=== PATIENT | male | born 1965 | race Caucasian/White ===

== ENCOUNTER → 2016-12-26 | Outpatient (CLI) | payer BC ==
[~2016-12-26] MED LIST: ASPI-435 PO; CLOT10TR2 MT; HYDR4TAB78 PO; LORA-741 PO; LOVAZA PO; MAGIC1 PO; MULT-506 PO; OMEG10007 PO; OMEP20CA9 PO; ONDA8TAB6 PO; PILO5TAB10 PO; PROC1TAB5 PO; SIMV20TA2 PO
--- NOTE | 2016-12-26 15:11 | DIAGNOSTIC IMAGING REPORT ---
ULTRASOUND OF THE CAROTID ARTERIES CLINICAL HISTORY: Cancer of the tongue. COMPARISON STUDY: CT scan of the neck dated 10/03/2016. TECHNIQUE: Real-time, grayscale, and color Doppler sonography of the carotid arteries is performed. Images are reviewed in the transverse and longitudinal planes. FINDINGS: Blood pressure in the right arm measures 155/91 and blood pressure in the left arm measures 147/94. The carotid arteries are patent bilaterally and demonstrate antegrade flow. There is minimal atherosclerotic plaque identified. Normal doppler arterial waveforms are seen throughout. Velocity measurements are listed below. Common carotid peak systolic velocity (cm/sec): RIGHT: 100 LEFT: 104 ICA proximal peak systolic velocity (cm/sec): RIGHT: 96 LEFT: 73 ICA mid peak systolic velocity (cm/sec): RIGHT: 77 LEFT: 82 ICA distal peak systolic velocity (cm/sec): RIGHT: 89 LEFT: 74 ICA/CC peak systolic ratio: RIGHT: 1.0 LEFT: 0.8 Antegrade flow was shown in the vertebral arteries. The external carotid arteries are patent. IMPRESSION: 1. There is no sonographic evidence of hemodynamically significant stenosis in the right or left carotid arterial system. 2. Antegrade flow is shown in the vertebral arteries. Electronically signed by: Ilya Dukes M.D. 12/26/2016 3:09 PM Dictated Date/Time: 12/26/2016 3:08 PM
== END | disposition home or self-care (01) ==
LOC: C.ULTR 14:03
PROVIDERS: ATTEND Radiology Radiation Oncology
DX: C02.1 Malignant neoplasm of border of tongue (principal)

== ENCOUNTER → 2017-01-23 | Day surgery (SDC) | payer BC ==
[~2017-01-23] VITALS: Ht 175.3 cm; Wt 96.4 kg
[~2017-01-23] MED LIST changes: -ASPI-435 PO; +CEFAZOLIN IV 2,000 MG/60 ML D5W IV SCH; +FENTANYL CITRATE INJ 50 MCG/1 ML 2 ML VIAL ONE; +LIDOCAINE HCL 2% 2 ML VIAL (20MG/ML) ONE; -LOVAZA PO; +MIDAZOLAM HCL 1 MG/ML 2ML VIAL ONE; +PROPOFOL IV EMULSION 10 MG/ML 20 ML VIAL IV ONE
[2017-01-23 11:17] VITALS: Ht 175.3 cm; Wt 96.4 kg
[2017-01-23 11:43] VITALS: TEMP 37
--- NOTE | 2017-01-23 12:15 | Endo History and Physical ---
History & Physical Date of Service: Jan 23, 2017. Chief Complaint: Inadequate intake; R/T radiaion, chemo Referring Physician: Harshal Conrad History of Present Illness History of tongue cancer for PEG tube placement today Past Medical History Reflux, Cancer, High Cholesterol Past Surgical History Hx Cardiac Surgery: No Hx Internal Defibrillator: No Hx Pacemaker: No Hx Abdominal Surgery: No Hx Post-Op Nausea and Vomiting: No Hx Cancer Surgery: No Hx Thoracic Surgery: No Hx Orthopedic: No Hx Urinary Tract Surgery: No Family History None Social History Smoking Status: Never Smoker Hx Substance Use: No Hx Alcohol Use: No Allergies Coded Allergies: Morphine and Related (Verified Allergy, Severe, RASH, 12/06/16) Current Medications Reported Home Medications Medications Dose Route/Sig Max Daily Dose Days Date Category Dose Instructions Zofran (Ondansetron HCl) 8 Mg Tab 8 Mg PO PRN 01/13/17 Reported Compazine (Prochlorperazine Maleate) 10 Mg Tab 10 Mg PO Q4H 01/13/17 Reported NAUSEA/VOMITING Dilaudid (Hydromorphone Hcl) 4 Mg Tab 1 Tab PO QID PRN 30 01/13/17 Reported Prilosec (Omeprazole) 20 Mg Cap 20 Mg PO DAILY PRN 05/12/15 Reported Zocor (Simvastatin) 20 Mg Tab 20 Mg PO DAILY 05/12/15 Reported Vital Signs Weight (Kilograms): 96.36 Height (Feet): 5 Height (Inches): 9 Date Time Temp Pulse Resp B/P Pulse Ox O2 Delivery O2 Flow Rate FiO2 01/23/17 11:43 37 83 20 135/82 96 Room Air Physical Exam General Appearance: no apparent distress Respiratory/Chest: Auscultation: breath sounds normal Cardiovascular: Heart Auscultation: RRR Abdomen: Inspection & Palpation: soft Assessment and Plan PEG tube placement today, history of tongue cance. Risks discussed to include bleeding, infection, perforation, pain and infection.
--- NOTE | 2017-01-23 13:18 | Discharge Instructions ---
Endoscopy Patient Instructions Date / Procedure Performed Jan 23, 2017. Percutaneous Endoscopic Gastrotomy (P.E.G) Tube Replacement / Removal Allergy Information Coded Allergies: Morphine and Related (Verified Allergy, Severe, RASH, 01/23/17) Home Medication List Scheduled Prochlorperazine Maleate (Compazine), 10 MG PO Q4H Simvastatin (Zocor), 20 MG PO DAILY Scheduled PRN Hydromorphone Hcl (Dilaudid), 1 TAB PO QID PRN for Pain Omeprazole (Prilosec), 20 MG PO DAILY PRN for Indigestion Ondansetron Hcl (Zofran), 8 MG PO for Nausea Discharge Date / Findings Jan 23, 2017. PEG tube placement today Medication Instructions Reported Home Medications Medications Dose Route/Sig Max Daily Dose Days Date Category Dose Instructions Zofran (Ondansetron HCl) 8 Mg Tab 8 Mg PO PRN 01/13/17 Reported Compazine (Prochlorperazine Maleate) 10 Mg Tab 10 Mg PO Q4H 01/13/17 Reported NAUSEA/VOMITING Dilaudid (Hydromorphone Hcl) 4 Mg Tab 1 Tab PO QID PRN 30 01/13/17 Reported Prilosec (Omeprazole) 20 Mg Cap 20 Mg PO DAILY PRN 05/12/15 Reported Zocor (Simvastatin) 20 Mg Tab 20 Mg PO DAILY 05/12/15 Reported Provider Instructions Activity Recommendations * Resume regular activity . Diet Recommendations * Resume previous diet. * Advance diet as tolerated. * Before each feeding, aspirate the tube for residual gastric contents. Hold feedings for residual of 50 ml or more. * Elevate the head of the bed during and after feedings for 30-60 minutes . Medication Instructions * Resume usual medications. * Always flush the tube with warm water after administration of medication. Follow-Up Information Follow-up with Gastroenterology in 2 weeks for evaluation of the PEG tube Change dressing once per day Clean site with soap and water daily and dry thoroughly May use PEG today for meds and water May use PEG tomorrow for feedings Anesthesia Information What You Should Know You have had a procedure that required some medicine to reduce anxiety and discomfort. This treatment is called moderate sedation. After receiving the treatment, you may be sleepy, but you will be able to breathe on your own. The effects of the treatment may last for several hours. Follow these instructions along with Activity/Diet recommendations noted above: * Do NOT do anything where dizziness or clumsiness would be dangerous. * Rest quietly at home today, then you can be up and about tomorrow. * Have a responsible person stay with you the rest of today. * You may have had an I.V. today. If so, you may take the dressing off later today. Symptoms Additional Instructions If you experience any of the following symptoms after your procedure seek medical attention at your closest Emergency Room and/or call your primary care physician immediately: * Severe abdominal pain or bloating * Fever greater than 101.1 degrees within 24 hours after the procedure * Uncontrolled nausea and vomiting Avoid all tobacco products. If you need help to stop smoking, call [place]'s FREE QUIT LINE at . Your discharge instructions were prepared by provider Kasie Rios. Patient Instructions Signature Page [facility] [place] Patient (or Guardian) Signature/Date: I have read and understand the instructions given to me by my caregivers. Caregiver/RN/Doctor Signature/Date: The above-named patient and/or guardian has received patient instructions on this date. + Original Patient Signature Page (only) stays with chart. Please make copy for patient.
--- NOTE | 2017-01-23 13:54 | Anesthesiology Progress Note ---
Anesthesia Post Op Note Date & Time Jan 23, 2017 at 13:53 Vital Signs Pain Intensity: 5 Vital Signs Past 12 Hours Date Time Temp Pulse Resp B/P Pulse Ox O2 Delivery O2 Flow Rate FiO2 01/23/17 13:35 68 18 157/87 96 Room Air 01/23/17 13:25 65 18 153/87 98 Room Air Mask 01/23/17 13:16 84 18 148/87 100 Mask 10 01/23/17 11:43 37 83 20 135/82 96 Room Air Notes Mental Status: alert / awake / arousable Nausea / Vomiting: adequately controlled Pain: adequately controlled Airway Patency, RR, SpO2: stable & adequate BP & HR: stable & adequate Hydration State: stable & adequate Anesthetic Complications: no major complications apparent
[2017-01-23 14:12] VITALS: BP 152/83; PULSE 67; O2SAT 96
--- NOTE | 2017-01-24 00:45 | GI REPORT ---
Procedure Date: 01/23/2017 12:17 PM Procedure: Upper GI endoscopy Indications: Place PEG because patient is unable to eat Medicines: Monitored Anesthesia Care, Ancef 1000 mg IV Complications: No immediate complications. Estimated blood loss: Minimal. Estimated Blood Loss: Estimated blood loss was minimal. Procedure: Pre-Anesthesia Assessment: - Prior to the procedure, a History and Physical was performed, and patient medications, allergies and sensitivities were reviewed. The patient's tolerance of previous anesthesia was reviewed. - The risks and benefits of the procedure and the sedation options and risks were discussed with the patient. All questions were answered and informed consent was obtained. - Patient identification and proposed procedure were verified prior to the procedure by the physician, the nurse and the photographer aerial. The procedure was verified in the procedure room. - Pre-procedure physical examination revealed no contraindications to sedation. - ASA Grade Assessment: III - A patient with severe systemic disease. - After reviewing the risks and benefits, the patient was deemed in satisfactory condition to undergo the procedure. - The anesthesia plan was to use monitored anesthesia care (MAC). - Immediately prior to administration of medications, the patient was re-assessed for adequacy to receive sedatives. - The heart rate, respiratory rate, oxygen saturations, blood pressure, adequacy of pulmonary ventilation, and response to care were monitored throughout the procedure. - The physical status of the patient was re-assessed after the procedure. After obtaining informed consent, the endoscope was passed under direct vision. Throughout the procedure, the patient's blood pressure, pulse, and oxygen saturations were monitored continuously. The scope was introduced through the mouth, and advanced to the third part of duodenum. The upper GI endoscopy was accomplished without difficulty. The patient tolerated the procedure well. Findings: The examined esophagus was normal. The entire examined stomach was normal. The patient was placed in the supine position for PEG placement. The stomach was insufflated to appose gastric and abdominal durán. A site was located in the body of the stomach with excellent transillumination and manual external pressure for placement. The abdominal wall was marked and prepped in a sterile manner. The area was anesthetized with 5 mL of 1% lidocaine. The trocar needle was introduced through the abdominal wall and into the stomach under direct endoscopic view. A snare was introduced through the endoscope and opened in the gastric lumen. The guide wire was passed through the trocar and into the open snare. The snare was closed around the guide wire. The endoscope and snare were removed, pulling the wire out through the mouth. A skin incision was made at the site of needle insertion. The externally removable 20 Fr Enoch-Cook gastrostomy tube was lubricated. The G-tube was tied to the guide wire and pulled through the mouth and into the stomach. The trocar needle was removed, and the gastrostomy tube was pulled out from the stomach through the skin. The external bumper was attached to the gastrostomy tube, and the tube was cut to remove the guide wire. The final position of the gastrostomy tube was confirmed by relook endoscopy, and skin marking noted to be 3.5 cm at the external bumper. The final tension and compression of the abdominal wall by the PEG tube and external bumper were checked and revealed that the PEG balloon was moderately tight and mildly compressing the stomach. The feeding tube was capped, and the tube site cleaned and dressed. Estimated blood loss was minimal. The examined duodenum was normal. Impression: - Normal esophagus. - Normal stomach. - Normal examined duodenum. - An externally removable PEG placement was successfully completed. - No specimens collected. Recommendation: - Clear liquid diet today. - Please follow the post-PEG recommendations including: change dressing once per day, clean site with soap and water daily and dry thoroughly, may use PEG today for meds and water and may use PEG tomorrow for feedings. Kasie Rios D.O. Kasie Rios, 01/23/2017 1:16:11 PM This report has been signed electronically. Note Initiated On: 01/23/2017 12:17 PM I attest to the content of the Intraoperative Record and orders documented therein, exceptions below
== END | disposition home or self-care (01) ==
LOC: C.GI 10:31
PROVIDERS: ATTEND Internal Medicine Gastroenterology
DX: C02.1 Malignant neoplasm of border of tongue (principal); Z92.21 Personal history of antineoplastic chemotherapy; Z92.3 Personal history of irradiation; E78.00 Pure hypercholesterolemia, unspecified; K21.9 Gastro-esophageal reflux disease without esophagitis

== ENCOUNTER 2017-02-09 12:27 | Inpatient (IN) | payer BC ==
[~2017-02-09] VITALS: Ht 177.8 cm; Wt 92.3 kg
[~2017-02-09 12:27] MED LIST changes: -CEFAZOLIN IV 2,000 MG/60 ML D5W IV SCH; -CLOT10TR2 MT; -FENTANYL CITRATE INJ 50 MCG/1 ML 2 ML VIAL ONE; -LIDOCAINE HCL 2% 2 ML VIAL (20MG/ML) ONE; -LORA-741 PO; -MAGIC1 PO; -MIDAZOLAM HCL 1 MG/ML 2ML VIAL ONE; -MULT-506 PO; -OMEG10007 PO; -PILO5TAB10 PO; -PROPOFOL IV EMULSION 10 MG/ML 20 ML VIAL IV ONE
[2017-02-09] MEDS ORDERED: ONDANSETRON INJ 2 MG/ML 2 ML VIAL IV STA ×2 (14:14→14:48)
[2017-02-09] MEDS ORDERED: SODIUM CHLORIDE 0.9% 1000ML 1,000 ML IV STA (14:14)
[2017-02-09 14:24] LABS: COMPLETE YES; EOS % 1.2 %; HEMATOCRIT 35.4 % (42-52); IG% 0.4 %; LYMPH % 12.3 %; MEAN CELL VOLUME 83.5 fL (80-100); MEAN CORPUSCULAR HGB CONC 34.7 g/dl (32-36); MEAN PLATELET VOLUME 8.6 fL (7.4-10.4); MONO % 14.8 %; NEUT % 71.3 %; PLATELET COUNT 211 K/uL (130-400); RED BLOOD COUNT 4.24 M/uL (4.7-6.1); WHITE BLOOD COUNT 2.43 K/uL (4.8-10.8)
[2017-02-09 14:34] LABS: ALT/SGPT 31 U/L (12-78); AST/SGOT 18 U/L (15-37); BLOOD UREA NITROGEN 16 mg/dl (7-18); BUN/CREATININE RATIO 15.9 (10-20); CALCIUM 8.9 mg/dl (8.5-10.1); CARBON DIOXIDE 29 mmol/L (21-32); CHLORIDE 104 mmol/L (98-107); GLUCOSE 94 mg/dl (70-99); MAGNESIUM 2.3 mg/dl (1.8-2.4); PHOSPHORUS 3.4 mg/dl (2.5-4.9); POTASSIUM 4.2 mmol/L (3.5-5.1); SODIUM 140 mmol/L (136-145)
[2017-02-09 14:35] LABS: ALKALINE PHOSPHATASE 72 U/L (45-117)
[2017-02-09] MEDS ORDERED: HYDROmorphone INJ 1 MG/ML SYR IV STA (14:48)
--- NOTE | 2017-02-09 14:54 | DIAGNOSTIC IMAGING REPORT ---
CHEST ONE VIEW PORTABLE CLINICAL HISTORY: Generalized Weakness dyspnea COMPARISON STUDY: No previous studies for comparison. FINDINGS: 05/12/2015 IMPRESSION: Negative chest. Electronically signed by: Mina Gale M.D. 02/09/2017 2:53 PM Dictated Date/Time: 02/09/2017 2:52 PM
[2017-02-09] MEDS ORDERED: LORA-741 PO (15:23)
[2017-02-09] MEDS ORDERED: PILO5TAB10 PO (15:23)
[2017-02-09] MEDS ORDERED: ACETAMINOPHEN 325 MG TAB PO PRN (15:45)
[2017-02-09] MEDS ORDERED: PROMETHAZINE HCL INJ 12.5 MG in SODIUM CHLORIDE 0.9% 50ML 50 ML IV PRN (15:45)
--- NOTE | 2017-02-09 15:53 | History and Physical ---
History & Physical Date & Time of Service: Feb 09, 2017 at 15:40 Chief Complaint: Nausea Primary Care Physician: Harshal Conrad D.O.Int.Med. History of Present Illness Source: patient, family Pt is a 51 yo male who presents to the ER with complaints of worsening nausea and vomiting for past couple days. The patient has a history of cancer of the head and neck in which he sees Dr Penn. The patient had his last round of chemotherapy last monday 02/05 and reports N/V initially started on friday then resolved and then started up the morning [employer]. Per patient, vomiting was projectile as well. No blood in vomit noted. Pt reports only low grade fever on friday of 99.1. Pt denies any worsening fevers, chills, chest pain, shortness of breath or abdominal pain. Pt take zofran and compazine at home which provided minimal relief. Pt does report a sore throat that he attributes to the intractable vomiting. Pt has PEG tube as well. Past Medical/Surgical History Medical Problems: (1) GERD (gastroesophageal reflux disease) Status: Chronic (2) Kidney stone Status: Resolved Surgical Problems: (1) S/P tonsillectomy Status: Resolved Family History Cancer Kidney stone Social History Smoking Status: Never Smoker Marital Status: Occupational Status: employed Allergies Coded Allergies: Morphine and Related (Verified Allergy, Severe, RASH, 02/09/17) Home Medications Scheduled [place] ([place]), 5 MG PO TID Prochlorperazine Maleate (Compazine), 10 MG PO Q4H Simvastatin (Zocor), 20 MG PO DAILY Scheduled PRN Hydromorphone Hcl (Dilaudid), 1 TAB PO QID PRN for Pain Lorazepam (Ativan), 0.5 MG PO TID PRN for Nausea Omeprazole (Prilosec), 20 MG PO DAILY PRN for Indigestion Ondansetron Hcl (Zofran), 8 MG PO for Nausea Review of Systems Constitutional: + fatigue, + weakness, No chills, No fever Respiratory: No cough, No sputum, No wheezing Cardiovascular: No chest pain, No orthopnea Abdomen: + nausea, + vomiting, No constipation, No diarrhea, No pain Musculoskeletal: No joint pain, No muscle pain Genitourinary - Male: No dysuria, No hematuria Psychiatric: No anhedonism, No depression symptoms Integumentary: No itch, No rash Physical Exam Vital Signs Date Time Temp Pulse Resp B/P Pulse Ox O2 Delivery O2 Flow Rate FiO2 02/09/17 15:36 78 16 119/76 96 Room Air 02/09/17 14:53 78 02/09/17 14:40 79 18 125/78 96 Room Air 02/09/17 12:30 37.2 91 16 118/79 95 Room Air General Appearance: WD/WN, + mild distress Neck: supple, no adenopathy Respiratory/Chest: lungs clear, normal breath sounds Cardiovascular: no edema, no gallop Abdomen/GI: non tender, soft, + pertinent finding (PEG tube noted) Neurologic/Psych: alert, oriented x 3 Diagnostics Laboratory Results Results Past 24 Hours Test 02/09/17 13:24 02/09/17 14:58 Range/Units White Blood Count 2.43 4.8-10.8 K/uL Red Blood Count 4.24 4.7-6.1 M/uL Hemoglobin 12.3 14.0-18.0 g/dL Hematocrit 35.4 42-52 % Mean Corpuscular Volume 83.5 80-100 fL Mean Corpuscular Hemoglobin 29.0 25-34 pg Mean Corpuscular Hemoglobin Concent 34.7 32-36 g/dl Platelet Count 211 130-400 K/uL Mean Platelet Volume 8.6 7.4-10.4 fL Neutrophils (%) (Auto) 71.3 % Lymphocytes (%) (Auto) 12.3 % Monocytes (%) (Auto) 14.8 % Eosinophils (%) (Auto) 1.2 % Basophils (%) (Auto) 0.0 % Neutrophils # (Auto) 1.73 1.4-6.5 K/uL Lymphocytes # (Auto) 0.30 1.2-3.4 K/uL Monocytes # (Auto) 0.36 0.11-0.59 K/uL Eosinophils # (Auto) 0.03 0-0.5 K/uL Basophils # (Auto) 0.00 0-0.2 K/uL RDW Standard Deviation 47.1 36.4-46.3 fL RDW Coefficient of Variation 15.6 11.5-14.5 % Immature Granulocyte % (Auto) 0.4 % Immature Granulocyte # (Auto) 0.01 0.00-0.02 K/uL Sodium Level 140 136-145 mmol/L Potassium Level 4.2 3.5-5.1 mmol/L Chloride Level 104 98-107 mmol/L Carbon Dioxide Level 29 21-32 mmol/L Anion Gap 7.0 3-11 mmol/L Blood Urea Nitrogen 16 7-18 mg/dl Creatinine 1.00 0.60-1.40 mg/dl Est Creatinine Clear Calc Drug Dose 96.0 ml/min Estimated GFR () 99.2 Estimated GFR (Non- 85.5 BUN/Creatinine Ratio 15.9 10-20 Random Glucose 94 70-99 mg/dl Calcium Level 8.9 8.5-10.1 mg/dl Phosphorus Level 3.4 2.5-4.9 mg/dl Magnesium Level 2.3 1.8-2.4 mg/dl Total Bilirubin 0.5 0.2-1 mg/dl Direct Bilirubin 0.1 0-0.2 mg/dl Aspartate Amino Transf (AST/SGOT) 18 15-37 U/L Alanine Aminotransferase (ALT/SGPT) 31 12-78 U/L Alkaline Phosphatase 72 45-117 U/L Total Creatine Kinase 34 39-308 U/L Creatine Kinase MB < 0.5 0.5-3.6 ng/ml Creatine Kinase MB Ratio 0-3.0 Troponin I < 0.015 0-0.045 ng/ml Total Protein 7.5 6.4-8.2 gm/dl Albumin 3.7 3.4-5.0 gm/dl Lipase 153 73-393 U/L Bedside Lactic Acid Venous 0.79 0.90-1.70 mmol/L Microbiology Results 02/09/17 Blood Culture, Received Pending 02/09/17 Blood Culture, Received Pending Impression Assessment and Plan Pt is a 51 yo male who presents with intractable N/V x 1 day Intractable N/V likely secondary to recent chemotherapy. Continue zofran and phenergan PRN at this time. Hold off on any tube feeds, will consult pharmacy to begin tomorrow. Cont IVF at this time. No evidence of infectious source. No indication for antibiotics or imaging. Pt follows up next week with Dr Penn for continued radiation. Will need to consult if anticipated longer stay. Head and neck cancer on chemo and radiation. Finished last course on friday. Sees Dr Penn. Pt currently neutropenic. Continue to trend CBC. No current indication for antibx. Dehydration will continue IVF and check BMP in AM Dyslipidemia cont zocor at this time GERD cont omeprazole DVT ppx with heparin Pt is FULL CODE VTE Prophylaxis VTE Risk Assessment Done? Y/N: Yes Risk Level: Moderate
[2017-02-09] MEDS ORDERED: LORAZEPAM 0.5 MG TAB PO PRN (16:00)
[2017-02-09] MEDS ORDERED: PANTOprazole SOD 40 MG TAB PO PRN (16:00)
[2017-02-09 16:10] LABS: INR 0.9 (0.9-1.1); PROTHROMBIN TIME (PATIENT) 9.9 SECONDS (9.0-12.0)
[2017-02-09 16:20] VITALS: O2SAT 94
[2017-02-09] MEDS: SODIUM CHLORIDE 0.9% 1000ML 1,000 ML IV SCH (16:51)
[2017-02-09] MEDS ORDERED: NURSING VERBAL MED ORDER ONE (17:00)
[2017-02-09] MEDS: PROCHLORPERAZINE MALEATE 10 MG TAB PO SCH ×2 (17:31→21:09)
[2017-02-09] MEDS: ONDANSETRON INJ 2 MG/ML 2 ML VIAL IV PRN (17:36)
[2017-02-09] MEDS ORDERED: MAGIC MOUTHWASH PO SCH (18:00)
[2017-02-09 18:27] LABS: URINE APPEARANCE CLEAR (CLEAR); URINE BILIRUBIN NEG (NEG); URINE COLOR YELLOW; URINE NITRITE NEG (NEG); URINE PH 7.5 (4.5-7.5); URINE SPECIFIC GRAVITY 1.015 (1.000-1.030); UROBILINOGEN NEG (NEG)
[2017-02-09 18:30] LABS: MANUAL MICROSCOPIC REQUIRED? NO; REVIEW REQ? NO; SULFASALICYLIC ACID NEG (NEG); ZZUR CULT IF INDIC CLEAN CATCH NO
[2017-02-09 19:27] VITALS: BP 116/75; PULSE 77; TEMP 37.6; O2SAT 98
[2017-02-09] MEDS: HEPARIN SOD 5000 UNIT/0.5 ML CARP SQ SCH (21:00)
[2017-02-09] MEDS: PILOCARPINE HCL 5 MG TAB PO SCH (21:08)
[2017-02-09] MEDS: HYDROmorphone HCL 2 MG TAB PO PRN (21:10)
--- NOTE | 2017-02-09 21:12 | EMERGENCY ROOM VISIT NOTE ---
History Report prepared by Allie: Paige Mix Under the Supervision of: Dr. Marlon Carbajal M.D. First contact with patient: 14:07 Chief Complaint: NAUSEA Stated Complaint: NAUSEA Nursing Triage Summary: Patient's states "He just finished chemo last Friday for head and neck cancer. He can't hold anything down. He has nausea and vomiting." History of Present Illness The patient is a 51 year old male who presents to the Emergency Room via with complaints of worsening nausea and vomiting with onset one day ago. The patient has a history of cancer of the head and neck. The patient had his last round of chemotherapy 4 days ago. The patient will have radiation therapy this week. One day ago, the patient became very nauseous. The patient has been vomiting all day, including vomiting what he is fed through a PEG tube. He has not been able to keep anything down. The patient has tried taking Zofran and Compazine without relief. The patient had a temperature of 99.1 two days ago. The patient has been very fatigued and weak. The patient denies abdominal pain, recent falls. Source of History: patient Onset: one day ago Position: abdomen Quality: other (nausea, vomiting) Timing: worsening Associated Symptoms: + fatigue, + fevers (99.1), + weakness, No abdominal pain Review of Systems See HPI for pertinent positives & negatives. A total of 10 systems reviewed and were otherwise negative. Past Medical & Surgical Medical Problems: (1) GERD (gastroesophageal reflux disease) (2) Intractable nausea and vomiting (3) Kidney stone Surgical Problems: (1) S/P tonsillectomy Family History Cancer Kidney stone Social History Smoking Status: Never Smoker Alcohol Use: occasionally Marital Status: Housing Status: lives with significant other Occupation Status: employed Current/Historical Medications Scheduled Pilocarpine (Salagen), 5 MG PO TID Prochlorperazine Maleate (Compazine), 10 MG PO Q4H Simvastatin (Zocor), 20 MG PO DAILY Scheduled PRN Hydromorphone Hcl (Dilaudid), 1 TAB PO QID PRN for Pain Lorazepam (Ativan), 0.5 MG PO TID PRN for Nausea Omeprazole (Prilosec), 20 MG PO DAILY PRN for Indigestion Ondansetron Hcl (Zofran), 8 MG PO for Nausea Allergies Coded Allergies: Morphine and Related (Verified Allergy, Severe, RASH, 02/09/17) Physical Exam Vital Signs Date Time Temp Pulse Resp B/P Pulse Ox O2 Delivery O2 Flow Rate FiO2 02/09/17 15:36 78 16 119/76 96 Room Air 02/09/17 14:53 78 02/09/17 14:40 79 18 125/78 96 Room Air 02/09/17 12:30 37.2 91 16 118/79 95 Room Air Physical Exam GENERAL: Patient is ill appearing and in moderate distress. Periodic dry heaving. HEENT: No acute trauma, normocephalic atraumatic, mucous membranes dry, no nasal congestion, no scleral icterus. NECK: No stridor, no adenopathy, no meningismus, trachea is midline. LUNGS: No dyspnea. Clear to auscultation and equal bilaterally. No wheeze, no rhonchi. HEART: Regular rate and rhythm. No murmurs, rubs, gallops appreciated. ABDOMEN: Soft, nontender, bowel sounds positive, no masses appreciated, no peritonitis. PEG tube is in place mid abdomen, mild surrounding erythema. BACK: No midline tenderness, no CVA tenderness EXTREMITIES: Normal motion all extremities, no cyanosis, no edema. NEUROLOGIC: Alert and oriented, no acute motor or sensory deficits, no focal weakness, cranial nerves grossly intact. SKIN: No rash, no jaundice, no diaphoresis. Medical Decision & Procedures ER Provider Diagnostic Interpretation: X ray results are stated below per my interpretation and the radiologist's interpretation. CHEST ONE VIEW PORTABLE CLINICAL HISTORY: Generalized Weakness dyspnea COMPARISON STUDY: No previous studies for comparison. FINDINGS: 05/12/2015 IMPRESSION: Negative chest. Electronically signed by: Mina Gale M.D. 02/09/2017 2:53 PM Dictated Date/Time: 02/09/2017 2:52 PM Laboratory Results 02/09/17 13:24 Red Blood Count 4.24, Mean Corpuscular Volume 83.5, Mean Corpuscular Hemoglobin 29.0, Mean Corpuscular Hemoglobin Concent 34.7, Mean Platelet Volume 8.6, Neutrophils (%) (Auto) 71.3, Lymphocytes (%) (Auto) 12.3, Monocytes (%) (Auto) 14.8, Eosinophils (%) (Auto) 1.2, Basophils (%) (Auto) 0.0, Neutrophils # (Auto ) 1.73, Lymphocytes # (Auto) 0.30, Monocytes # (Auto) 0.36, Eosinophils # (Auto ) 0.03, Basophils # (Auto) 0.00 02/09/17 13:24 Test 02/09/17 13:24 02/09/17 14:58 White Blood Count 2.43 K/uL (4.8-10.8) Red Blood Count 4.24 M/uL (4.7-6.1) Hemoglobin 12.3 g/dL (14.0-18.0) Hematocrit 35.4 % (42-52) Mean Corpuscular Volume 83.5 fL (80-100) Mean Corpuscular Hemoglobin 29.0 pg (25-34) Mean Corpuscular Hemoglobin Concent 34.7 g/dl (32-36) Platelet Count 211 K/uL (130-400) Mean Platelet Volume 8.6 fL (7.4-10.4) Neutrophils (%) (Auto) 71.3 % Lymphocytes (%) (Auto) 12.3 % Monocytes (%) (Auto) 14.8 % Eosinophils (%) (Auto) 1.2 % Basophils (%) (Auto) 0.0 % Neutrophils # (Auto) 1.73 K/uL (1.4-6.5) Lymphocytes # (Auto) 0.30 K/uL (1.2-3.4) Monocytes # (Auto) 0.36 K/uL (0.11-0.59) Eosinophils # (Auto) 0.03 K/uL (0-0.5) Basophils # (Auto) 0.00 K/uL (0-0.2) RDW Standard Deviation 47.1 fL (36.4-46.3) RDW Coefficient of Variation 15.6 % (11.5-14.5) Immature Granulocyte % (Auto) 0.4 % Immature Granulocyte # (Auto) 0.01 K/uL (0.00-0.02) Prothrombin Time 9.9 SECONDS (9.0-12.0) Prothromb Time International Ratio 0.9 (0.9-1.1) Anion Gap 7.0 mmol/L (3-11) Est Creatinine Clear Calc Drug Dose 96.0 ml/min Estimated GFR () 99.2 Estimated GFR (Non- 85.5 BUN/Creatinine Ratio 15.9 (10-20) Calcium Level 8.9 mg/dl (8.5-10.1) Phosphorus Level 3.4 mg/dl (2.5-4.9) Magnesium Level 2.3 mg/dl (1.8-2.4) Total Bilirubin 0.5 mg/dl (0.2-1) Direct Bilirubin 0.1 mg/dl (0-0.2) Aspartate Amino Transf (AST/SGOT) 18 U/L (15-37) Alanine Aminotransferase (ALT/SGPT) 31 U/L (12-78) Alkaline Phosphatase 72 U/L (45-117) Total Creatine Kinase 34 U/L (39-308) Creatine Kinase MB < 0.5 ng/ml (0.5-3.6) Creatine Kinase MB Ratio (0-3.0) Troponin I < 0.015 ng/ml (0-0.045) Total Protein 7.5 gm/dl (6.4-8.2) Albumin 3.7 gm/dl (3.4-5.0) Lipase 153 U/L (73-393) Bedside Lactic Acid Venous 0.79 mmol/L (0.90-1.70) Laboratory results as reviewed by me. Medications Administered Medications (Trade) Dose Ordered Sig/Tristan Route Start Time Stop Time Status Last Admin Dose Admin Ondansetron HCl 4 mg 4 mg NOW STAT IV 02/09/17 14:14 02/09/17 14:15 DC 02/09/17 14:33 4 MG Sodium Chloride (Nss 1000ml) 1,000 ml @ 999 mls/hr Q1H1M STAT IV 02/09/17 14:14 02/09/17 15:14 DC 02/09/17 14:14 999 MLS/HR Hydromorphone HCl (Dilaudid Inj) 1 mg NOW STAT IV 02/09/17 14:48 02/09/17 14:49 DC 02/09/17 14:54 1 MG Ondansetron HCl (Zofran Inj) 4 mg NOW STAT IV 02/09/17 14:48 02/09/17 14:49 DC 02/09/17 14:54 4 MG ECG Indication: vomiting Rate (beats per minute): 82 Rhythm: normal sinus Findings: no acute ischemic change, no ectopy, other (QTc 450) ED Course 1409: The patient was evaluated in room A11. A complete history and physical exam was performed. 1414: Sodium Chloride 1000 ml @ 999 mls/hr IV, Zofran 4 mg IV 1448: Zofran 4 mg IV, Dilaudid 1 mg IV 1450: I reevaluated the patient; he is still having nausea and pain. 1505: I discussed the case with Dr. Dodson ([facility]); he will further evaluate the patient. Medical Decision Differential: Gastroenteritis, Food Borne, Esophageal Perforation, Electrolyte Abnormality, Dehydration, Intraabdominal Infection, UTI/Pyelonephritis, Bowel Obstruction, Biliary Pathology, Post-chemo emesis, amongst other pathology entertained. 51 yr old male 1 week post last chemo for head/neck CA. Persistent intractable vomiting over last few days, including vomiting of his peg tube feeds. Still with bowel outs, and no obstruction by exam. Abdomen soft without peritonitis. No clear infectious etiology. On max therapy as outpatient without success. Will need to come in as unable to tolerate PO. Stable otherwise. Given dilaudid as he is taking that regularly as outpatient but unable to keep down PO. Consults Time Called: 1500 Consulting Physician: Dr. Dodson ([facility]) Returned Call: [phone] I discussed the case with Dr. Dodson ([facility]); he will further evaluate the patient. Impression Primary Impression: Intractable vomiting Additional Impressions: Vomiting due to chemotherapy Dehydration Scribe Attestation The scribe's documentation has been prepared under my direction and personally reviewed by me in its entirety. I confirm that the note above accurately reflects all work, treatment, procedures, and medical decision making performed by me. Departure Information Dispostion Being Evaluated By Hospitalist Harshal Gutierrez D.O.Int.Med. (PCP) Patient Instructions My [facility] Problem Qualifiers Primary Impression: Intractable vomiting Vomiting type: unspecified Nausea presence: with nausea Qualified Codes: R11.2 - Nausea with vomiting, unspecified
[2017-02-09 23:47] VITALS: BP 122/77; PULSE 74; TEMP 36.8; O2SAT 97
[2017-02-10] MEDS: SODIUM CHLORIDE 0.9% 1000ML 1,000 ML IV SCH ×4 (00:12→23:59)
[2017-02-10] MEDS: PROCHLORPERAZINE MALEATE 10 MG TAB PO SCH ×6 (02:47→22:15)
[2017-02-10 04:00] VITALS: BP 124/81; PULSE 73; TEMP 36.8; O2SAT 97
[2017-02-10] MEDS: DIPHENHYDRAMINE HCL PO SCH ×20 (06:00→18:08)
[2017-02-10] MEDS: NYSTATIN PO SCH ×20 (06:00→18:08)
[2017-02-10] MEDS: ORA SWEET PO SCH ×20 (06:00→18:08)
[2017-02-10] MEDS: [UNRECOGNIZED DRUG - OTHER] PO SCH ×20 (06:00→18:08)
[2017-02-10] MEDS: ONDANSETRON INJ 2 MG/ML 2 ML VIAL IV PRN ×2 (06:29→14:08)
[2017-02-10 06:34] LABS: COMPLETE YES; EOS % 1.5 %; HEMATOCRIT 32.5 % (42-52); LYMPH % 25.4 %; MEAN CELL VOLUME 85.3 fL (80-100); MEAN CORPUSCULAR HEMOGLOBIN 27.8 pg (25-34); MEAN CORPUSCULAR HGB CONC 32.6 g/dl (32-36); MEAN PLATELET VOLUME 8.8 fL (7.4-10.4); MONO % 19.8 %; NEUT % 53.3 %; PLATELET COUNT 177 K/uL (130-400); RED BLOOD COUNT 3.81 M/uL (4.7-6.1); WHITE BLOOD COUNT 1.97 K/uL (4.8-10.8)
[2017-02-10] MEDS: HYDROmorphone HCL 2 MG TAB PO PRN ×4 (06:43→22:16)
[2017-02-10 06:57] VITALS: BMI 29.1
[2017-02-10 07:08] VITALS: BP 126/75; PULSE 75; TEMP 36.9; O2SAT 96
[2017-02-10 07:08] LABS: CALCIUM 8.5 mg/dl (8.5-10.1); CREATININE 0.83 mg/dl (0.60-1.40)
[2017-02-10] MEDS: SIMVASTATIN 20 MG TAB PO SCH (07:51)
[2017-02-10] MEDS: HEPARIN SOD 5000 UNIT/0.5 ML CARP SQ SCH ×2 (07:51→20:25)
[2017-02-10] MEDS: PILOCARPINE HCL 5 MG TAB PO SCH ×3 (07:51→20:17)
[2017-02-10] MEDS: BACITRACIN OINT 15 GM TUBE EXT SCH (07:52)
--- NOTE | 2017-02-10 09:58 | Hospitalist Progress Note ---
Hospitalist Progress Note Date of Service Feb 10, 2017. Subjective Pt evaluation today including: conversation w/ patient, conversation w/ family , physical exam, chart review, lab review, review of studies, review of inpatient medication list Voiding: no voiding problems, no incontinence Patient states he is feeling well. Nausea and vomiting have subsided- patient would like to begin tube feedings. +throat irritation. Patient denies any fever , chills, sweats, lightheadedness, dizziness, vision changes, CP, palpitations, edema, SOB, wheezing, cough, abdominal pain, nausea, vomiting, diarrhea, urinary symptoms, melena, numbness/tingling, weakness, muscle/joint pain, anxiety/depression, active bleeding, or new skin discoloration/changes. Per , patient had chemo treatment on , 02/05. Patient usually becomes extremely nauseous w/ associated vomiting the day after treatments. N/V seemed to subside on Friday. Friday begin tube feedings again, but patient became nauseous and started vomiting again. Pt. was brought to ED because they were worried about dehydration. Medications Current Inpatient Medications Medications (Trade) Dose Ordered Sig/Tristan Route Start Time Stop Time Status Last Admin Dose Admin Acetaminophen (Tylenol Tab) 650 mg Q4H PRN PO 02/09/17 15:45 03/11/17 15:44 Ondansetron HCl (Zofran Inj) 4 mg Q6H PRN IV 02/09/17 15:45 03/11/17 15:44 02/10/17 06:29 4 MG Heparin Sodium (Porcine) 5000 unit 5,000 unit Q12 SQ 02/09/17 21:00 03/11/17 20:59 Promethazine HCl 12.5 mg/Sodium Chloride 50.5 ml @ 204 mls/hr Q6H PRN IV 02/09/17 15:45 03/11/17 15:44 Sodium Chloride (Nss 1000ml) 1,000 ml @ 125 mls/hr Q8H IV 02/09/17 15:45 03/11/17 15:44 02/10/17 07:52 125 MLS/HR Hydromorphone HCl (Dilaudid Tab) 4 mg QID PRN PO 02/09/17 16:00 02/23/17 15:59 02/10/17 06:43 4 MG Lorazepam (Ativan Tab) 0.5 mg TID PRN PO 02/09/17 16:00 03/11/17 15:59 02/09/17 20:19 0.5 MG Pilocarpine HCl (Salagen Tab) 5 mg TID PO 02/09/17 20:00 03/11/17 20:59 02/10/17 07:51 5 MG Prochlorperazine Maleate (Compazine Tab) 10 mg Q4H PO 02/09/17 18:00 03/11/17 17:59 Simvastatin (Zocor Tab) 20 mg DAILY PO 02/10/17 08:00 03/12/17 08:59 02/10/17 07:51 20 MG Pantoprazole Sodium 40 mg DAILY PRN PO 02/09/17 16:00 03/11/17 15:59 Nystatin/ Diphenhydramine HCl/Sucrose/ Microcrystalline Cellulose/ Dexamethasone/ Barcode (Mycostatin Susp/ Benadryl Syrup/ Ora-Sweet Syrup/ Ora-Plus Susp. Vehicle/Decadron Conc Soln) Q6 PO 02/10/17 00:00 03/12/17 00:00 Bacitracin (Bacitracin Oint) 1 appln DAILY EXT 02/10/17 08:00 03/12/17 07:59 02/10/17 07:52 1 APPLN Objective Vital Signs Date Time Temp Pulse Resp B/P Pulse Ox O2 Delivery O2 Flow Rate FiO2 02/10/17 08:00 Room Air 02/10/17 07:08 36.9 75 18 126/75 96 Room Air 02/10/17 04:00 36.8 73 18 124/81 97 Room Air 02/10/17 00:00 Room Air 02/09/17 23:47 36.8 74 20 122/77 97 Room Air 02/09/17 19:27 37.6 77 20 116/75 98 Room Air 02/09/17 16:57 Room Air 02/09/17 16:20 85 16 113/74 94 Room Air 02/09/17 15:36 78 16 119/76 96 Room Air 02/09/17 14:53 78 02/09/17 14:40 79 18 125/78 96 Room Air 02/09/17 12:30 37.2 91 16 118/79 95 Room Air Physical Exam General Appearance: no apparent distress Eyes: PERRL ENT: + pharyngeal erythema, + pertinent finding (white lesions noted on tongue/ cheecks ) Neck: supple Respiratory/Chest: lungs clear, no respiratory distress, no accessory muscle use Cardiovascular: regular rate, rhythm Abdomen: normal bowel sounds, non tender, soft, + pertinent finding (PEG tube noted mid abdomen- mild erythema around site ) Extremities: no pedal edema, no calf tenderness Neurologic/Psychiatric: alert, normal mood/affect, oriented x 3 Skin: normal color, warm/dry, no rash Laboratory Results Last 24 Hours Test 02/09/17 13:24 02/09/17 14:58 02/09/17 17:20 02/10/17 05:37 White Blood Count 2.43 K/uL 1.97 K/uL Red Blood Count 4.24 M/uL 3.81 M/uL Hemoglobin 12.3 g/dL 10.6 g/dL Hematocrit 35.4 % 32.5 % Mean Corpuscular Volume 83.5 fL 85.3 fL Mean Corpuscular Hemoglobin 29.0 pg 27.8 pg Mean Corpuscular Hemoglobin Concent 34.7 g/dl 32.6 g/dl Platelet Count 211 K/uL 177 K/uL Mean Platelet Volume 8.6 fL 8.8 fL Neutrophils (%) (Auto) 71.3 % 53.3 % Lymphocytes (%) (Auto) 12.3 % 25.4 % Monocytes (%) (Auto) 14.8 % 19.8 % Eosinophils (%) (Auto) 1.2 % 1.5 % Basophils (%) (Auto) 0.0 % 0.0 % Neutrophils # (Auto) 1.73 K/uL 1.05 K/uL Lymphocytes # (Auto) 0.30 K/uL 0.50 K/uL Monocytes # (Auto) 0.36 K/uL 0.39 K/uL Eosinophils # (Auto) 0.03 K/uL 0.03 K/uL Basophils # (Auto) 0.00 K/uL 0.00 K/uL RDW Standard Deviation 47.1 fL 48.6 fL RDW Coefficient of Variation 15.6 % 15.8 % Immature Granulocyte % (Auto) 0.4 % 0.0 % Immature Granulocyte # (Auto) 0.01 K/uL 0.00 K/uL Prothrombin Time 9.9 SECONDS Prothromb Time International Ratio 0.9 Sodium Level 140 mmol/L 142 mmol/L Potassium Level 4.2 mmol/L 4.0 mmol/L Chloride Level 104 mmol/L 108 mmol/L Carbon Dioxide Level 29 mmol/L 25 mmol/L Anion Gap 7.0 mmol/L 9.0 mmol/L Blood Urea Nitrogen 16 mg/dl 12 mg/dl Creatinine 1.00 mg/dl 0.83 mg/dl Est Creatinine Clear Calc Drug Dose 96.0 ml/min 117.3 ml/min Estimated GFR () 99.2 116.4 Estimated GFR (Non- 85.5 100.5 BUN/Creatinine Ratio 15.9 14.0 Random Glucose 94 mg/dl 89 mg/dl Calcium Level 8.9 mg/dl 8.5 mg/dl Phosphorus Level 3.4 mg/dl Magnesium Level 2.3 mg/dl Total Bilirubin 0.5 mg/dl Direct Bilirubin 0.1 mg/dl Aspartate Amino Transf (AST/SGOT) 18 U/L Alanine Aminotransferase (ALT/SGPT) 31 U/L Alkaline Phosphatase 72 U/L Total Creatine Kinase 34 U/L Creatine Kinase MB < 0.5 ng/ml Creatine Kinase MB Ratio Troponin I < 0.015 ng/ml Total Protein 7.5 gm/dl Albumin 3.7 gm/dl Lipase 153 U/L Bedside Lactic Acid Venous 0.79 mmol/L Urine Color YELLOW Urine Appearance CLEAR Urine pH 7.5 Urine Specific [place] 1.015 Urine Protein NEG Urine Glucose (UA) NEG Urine Ketones NEG Urine Occult Blood NEG Urine Nitrite NEG Urine Bilirubin NEG Urine Urobilinogen NEG Urine Leukocyte Esterase NEG Assessment and Plan Pt is a 51 yo male who presents with intractable N/V x 1 day Intractable N/V, likely secondary to recent chemotherapy: - Admit med/surg - Zofran and Phenergan PRN at this time. 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 Penn - Finished 04/29 chemotherapy Friday02/05/17 - Scheduled for 3 more radiation treatments on 02/10, 02/11, and 02/12 Neutropenic, likely secondary to chemotherapy: - Continue to trend CBC - CXR- no acute process - U/A negative - No current indication for antibiotic treatment. Continue to monitor for s/s Dehydration: - Treat IVF - Follow PRP Throat irritation/thrush: Magic mouthwash Dyslipidemia: Continue Zocor GERD: Continue Omeprazole DVT prophylaxis: Heparin 5000 units SQ q12 hrs Code Status: LEVEL I, FULL Dispo: - From home, lives w/ . Has health services--> no discharge needs anticipated at this time - Discharge to home once medically stable. Hopefully w/in the next 1-2 days
[2017-02-10 11:34] VITALS: BP 137/84; PULSE 70; TEMP 37.2; O2SAT 97
[2017-02-10] MEDS: TUBE FEEDING WATER FLUSH NG SCH ×6 (14:31→23:55)
[2017-02-10] MEDS: FIBERSOURCE HN 1000ML BAG PEG SCH ×6 (14:31→22:30)
[2017-02-10 15:03] VITALS: BP 132/84; PULSE 72; TEMP 37.2; O2SAT 98
[2017-02-10 17:06] VITALS: BP 121/83; PULSE 88; TEMP 37.2; O2SAT 96
[2017-02-10 19:13] VITALS: BP 136/86; PULSE 77; TEMP 37.2; O2SAT 95
[2017-02-11] MEDS: DIPHENHYDRAMINE HCL PO SCH ×15 (00:01→12:14)
[2017-02-11] MEDS: [UNRECOGNIZED DRUG - OTHER] PO SCH ×15 (00:01→12:14)
[2017-02-11] MEDS: NYSTATIN PO SCH ×15 (00:01→12:14)
[2017-02-11] MEDS: ORA SWEET PO SCH ×15 (00:01→12:14)
[2017-02-11 00:35] VITALS: BP 121/80; PULSE 84; TEMP 37.2; O2SAT 94
[2017-02-11] MEDS: PROCHLORPERAZINE MALEATE 10 MG TAB PO SCH ×3 (02:00→10:00)
[2017-02-11 05:02] VITALS: BP 113/76; PULSE 71; TEMP 37.1; O2SAT 97
[2017-02-11 05:50] LABS: BASO % 0.5 %; BASO ABS # 0.01 K/uL (0-0.2); COMPLETE YES; EOS % 1.4 %; HEMATOCRIT 31.1 % (42-52); LYMPH % 19.3 %; LYMPH ABS # 0.42 K/uL (1.2-3.4); MEAN CELL VOLUME 85.2 fL (80-100); MEAN CORPUSCULAR HEMOGLOBIN 28.2 pg (25-34); MEAN CORPUSCULAR HGB CONC 33.1 g/dl (32-36); MEAN PLATELET VOLUME 8.6 fL (7.4-10.4); MONO % 26.1 %; NEUT % 52.7 %; PLATELET COUNT 170 K/uL (130-400); RED BLOOD COUNT 3.65 M/uL (4.7-6.1); WHITE BLOOD COUNT 2.18 K/uL (4.8-10.8)
[2017-02-11 06:23] LABS: BUN/CREATININE RATIO 13.8 (10-20); CALCIUM 8.5 mg/dl (8.5-10.1); CREATININE 0.8 mg/dl (0.60-1.40)
[2017-02-11] MEDS: FIBERSOURCE HN 1000ML BAG PEG SCH ×4 (06:47→10:53)
[2017-02-11] MEDS: TUBE FEEDING WATER FLUSH NG SCH ×4 (06:47→12:09)
[2017-02-11 07:04] VITALS: Ht 177.8 cm; Wt 92.3 kg
[2017-02-11 07:14] VITALS: BP 126/76; PULSE 81; TEMP 37.1; O2SAT 95
[2017-02-11] MEDS: SODIUM CHLORIDE 0.9% 1000ML 1,000 ML IV SCH (08:29)
[2017-02-11] MEDS: PILOCARPINE HCL 5 MG TAB PO SCH (08:33)
[2017-02-11] MEDS: BACITRACIN OINT 15 GM TUBE EXT SCH (08:33)
[2017-02-11] MEDS: SIMVASTATIN 20 MG TAB PO SCH (08:34)
[2017-02-11] MEDS: HYDROmorphone HCL 2 MG TAB PO PRN (08:34)
[2017-02-11] MEDS: HEPARIN SOD 5000 UNIT/0.5 ML CARP SQ SCH (08:46)
[2017-02-11] MEDS ORDERED: ONDA8TAB6 PO (10:01)
--- NOTE | 2017-02-11 10:11 | Discharge Instructions ---
Discharge Instructions Date of Service Feb 11, 2017. Admission Reason for Admission: Intractable Nausea/Vomiting, Tongue Cancer Discharge Discharge Diagnosis / Problem: Intractable nausea/vomiting Discharge Goals Goal(s): Decrease discomfort, Improve function, Improve nutritional status, Therapeutic intervention, Prevent Disease Progression Activity Recommendations Activity Limitations: resume your previous activity . Instructions / Follow-Up Instructions / Follow-Up New medication: 1. Magic mouthwash 5 mL by mouth every 6 hours Resume all other regular home medications as prescribed -- Zofran has been renewed and sent to your pharmacy per your request Keep scheduled radiation treatment appointments Please follow-up with your PCP within 5-7 days Please follow-up/keep all of your subspecialty appointments Current Hospital Diet Patient's current hospital diet: Discharge Diet Recommended Diet: N/A (Tube feedings ) Procedures Procedures Performed: 1. Chest x-ray Pending Studies Studies pending at discharge: no Laboratory Results Last 24 Hours Test 02/11/17 05:15 White Blood Count 2.18 K/uL Red Blood Count 3.65 M/uL Hemoglobin 10.3 g/dL Hematocrit 31.1 % Mean Corpuscular Volume 85.2 fL Mean Corpuscular Hemoglobin 28.2 pg Mean Corpuscular Hemoglobin Concent 33.1 g/dl Platelet Count 170 K/uL Mean Platelet Volume 8.6 fL Neutrophils (%) (Auto) 52.7 % Lymphocytes (%) (Auto) 19.3 % Monocytes (%) (Auto) 26.1 % Eosinophils (%) (Auto) 1.4 % Basophils (%) (Auto) 0.5 % Neutrophils # (Auto) 1.15 K/uL Lymphocytes # (Auto) 0.42 K/uL Monocytes # (Auto) 0.57 K/uL Eosinophils # (Auto) 0.03 K/uL Basophils # (Auto) 0.01 K/uL RDW Standard Deviation 48.6 fL RDW Coefficient of Variation 15.7 % Immature Granulocyte % (Auto) 0.0 % Immature Granulocyte # (Auto) 0.00 K/uL Sodium Level 143 mmol/L Potassium Level 4.0 mmol/L Chloride Level 108 mmol/L Carbon Dioxide Level 29 mmol/L Anion Gap 6.0 mmol/L Blood Urea Nitrogen 11 mg/dl Creatinine 0.80 mg/dl Est Creatinine Clear Calc Drug Dose 122.5 ml/min Estimated GFR () 118.2 Estimated GFR (Non- 102.0 BUN/Creatinine Ratio 13.8 Random Glucose 90 mg/dl Calcium Level 8.5 mg/dl Medical Emergencies . Who to Call and When: Medical Emergencies: If at any time you feel your situation is an emergency, please call 911 immediately. . Non-Emergent Contact Non-Emergency issues call your: Primary Care Provider . . "Provider Documentation" section prepared by Morena Appiah. VTE Core Measure Inpt VTE Proph given/why not?: Unfractionated heparin SQ
[2017-02-11 11:15] VITALS: BP 129/82; PULSE 96; TEMP 36.9; O2SAT 96
--- NOTE | 2017-02-11 11:18 | Discharge Summary ---
Discharge Summary Date of Service Feb 11, 2017. Discharge Summary Admission Date: Feb 09, 2017 at 15:39 Discharge Date: Feb 11, 2017 Discharge Disposition: Home with services Principal Diagnosis: Intractable N/V Problems/Secondary Diagnoses: 1. Head and neck cancer 2. Neutropenic 3. Dehydration 4. Throat irritation/thrush 5. Dyslipidemia 6. GERD Procedures: CHEST ONE VIEW PORTABLE CLINICAL HISTORY: Generalized Weakness dyspnea COMPARISON STUDY: No previous studies for comparison. FINDINGS: 05/12/2015 IMPRESSION: Negative chest. Electronically signed by: Mina Gale M.D. 02/09/2017 2:53 PM Dictated Date/Time: 02/09/2017 2:52 PM The status of this report is Signed. Draft = Not yet reviewed or approved by Radiologist. Signed = Reviewed and approved by Radiologist. Medication Reconciliation Changed Medications: Ondansetron Hcl (Zofran) 8 Mg Tab 8 MG PO Q6H PRN for Nausea for 30 Days, #120 TAB (Medication details modified) Continued Medications: Hydromorphone Hcl (Dilaudid) 4 Mg Tab 1 TAB PO QID PRN for Pain for 30 Days, #120 TAB Lorazepam (Ativan) 0.5 Mg Tab 0.5 MG PO TID PRN for Nausea, TAB Omeprazole (Prilosec) 20 Mg Cap 20 MG PO DAILY PRN for Indigestion, CAP Pilocarpine (Salagen) 5 Mg Tab 5 MG PO TID, TAB Prochlorperazine Maleate (Compazine) 10 Mg Tab 10 MG PO Q4H, TAB NAUSEA/VOMITING Simvastatin (Zocor) 20 Mg Tab 20 MG PO DAILY, TAB Referrals At Discharge Follow up Referrals: Family Practice Referral - Within 1 Week with Harshal Conrad D.O.Int.Med. Discharge Exam Review of Systems: Constitutional: No chills, No fever, No sweats, No weakness ENT: + sore throat Respiratory: No cough, No hemoptysis, No shortness of breath Cardiovascular: No chest pain, No edema, No palpitations Abdomen: No GI bleeding, No constipation, No diarrhea, No nausea, No pain, No vomiting Musculoskeletal: No calf pain, No joint pain, No muscle pain, No swelling Genitourinary - Male: No dysuria, No hematuria Neurologic: No numbness/tingling, No weakness Psychiatric: No anxiety, No depression symptoms Hematologic / Lymphatic: No abnormal bleeding/bruising Integumentary: No itch, No new/changing skin lesions, No rash Physical Exam: General Appearance: no apparent distress Eyes: normal inspection, PERRL ENT: hearing grossly normal, + pharyngeal erythema, + pertinent finding ( white lesions to tongue/cheecks) Neck: supple Respiratory/Chest: lungs clear, no respiratory distress, no accessory muscle use Cardiovascular: regular rate, rhythm Abdomen / GI: normal bowel sounds, non tender, soft, + pertinent finding ( PEG tube mid abdomen- minimal erythema noted ) Extremities: no calf tenderness, no pedal edema Neurologic/Psychiatric: alert, normal mood/affect, oriented x 3 Skin: normal color, warm/dry, no rash Hospital Course HPI on admission: Pt is a 51 yo male who presents to the ER with complaints of worsening nausea and vomiting for past couple days. The patient has a history of cancer of the head and neck in which he sees Dr Penn. 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 Per patient, vomiting was projectile as well. No blood in vomit noted. Pt reports only low grade fever on Friday of 99.1. Pt denies any worsening fevers, chills, chest pain, shortness of breath or abdominal pain. Pt take Zofran and Compazine at home which provided minimal relief. Pt does report a sore throat that he attributes to the intractable vomiting. Pt has PEG tube as well. Intractable N/V, likely secondary to recent chemotherapy: - Admit med/surg - Zofran and Phenergan PRN at this time. - IVF - Dilaudid for pain control - Ativan 0.5 mg PO TID PRN - Consult millwright/pharmacy to begin tube feedings *Continue Dilaudid and Ativan as prescribed. Script given for Zofran. Head and neck cancer on chemo and radiation: - Follows w/ Dr. Penn - Finished / chemotherapy Friday02/05/17 - Scheduled for 3 more radiation treatments on 02/10, 02/11, and 02/12--> per Dr. Penn, 6-7 treatments- however, patient states he is refusing additional treatments *Continue scheduled radiation treatments Neutropenic, likely secondary to chemotherapy: - Continue to trend CBC - CXR- no acute process - U/A negative - No current indication for antibiotic treatment. Continue to monitor for s/s Dehydration: - Treat IVF - Follow PRP Throat irritation/thrush: Magic mouthwash *Script given at discharge Dyslipidemia: Continue Zocor *Continue at discharge GERD: Continue Omeprazole *Continue at discharge DVT prophylaxis: Heparin 5000 units SQ q12 hrs Code Status: LEVEL I, FULL Dispo: Discharge to home w/ health services Total Time Spent: Greater than 30 minutes This includes examination of the patient, discharge planning, medication reconciliation, and communication with other providers. Discharge Instructions Please refer to the electronic Patient Visit Report (Discharge Instructions) for additional information. Follow-Up Please follow-up with your PCP within 5-7 days Please follow-up/keep all of your subspecialty appointments Additional Copies To Harshal Conrad D.O.Int.Med.
[2017-02-11 11:24] VITALS: BP 129/82; PULSE 96; TEMP 36.9; O2SAT 96
[2017-02-12] MEDS ORDERED: PILO5TAB10 PO (09:46)
[2017-03-25] MEDS ORDERED: OMEG10007 PO (14:59)
[2017-08-05] MEDS ORDERED: MULT-506 PO (15:17)
== END 2017-02-11 13:12 | disposition home health service (06) | DRG 641 ==
LOC: ENRESERVTM → ENRESERVDT → C.EDB 12:28 → UNDOADMIN 15:39 → C.4E 15:39
PROVIDERS: ADMIT Hospitalist; ATTEND Internal Medicine
DX: E86.0 Dehydration (principal); B37.0 Candidal stomatitis; T45.1X5A Adverse effect of antineoplastic and immunosuppressive drugs, initial encounter; R11.0 Nausea; C76.0 Malignant neoplasm of head, face and neck; K21.9 Gastro-esophageal reflux disease without esophagitis; Z93.1 Gastrostomy status; D70.9 Neutropenia, unspecified; E78.5 Hyperlipidemia, unspecified; Y92.009 Unspecified place in unspecified non-institutional (private) residence as the place of occurrence of the external cause

== ENCOUNTER → 2017-03-24 | Day surgery (SDC) | payer BC ==
[~2017-03-24] MED LIST changes: +LORA-741 PO; +MULT-506 PO; +OMEG10007 PO; +PILO5TAB10 PO
== END | disposition home or self-care (01) ==
LOC: C.ACU 15:02
PROVIDERS: ATTEND Nurse Practitioner Family
DX: K94.22 Gastrostomy infection (principal)

== ENCOUNTER → 2017-03-25 | Outpatient (CLI) | payer BC ==
[2017-03-25 14:46] VITALS: BP 132/83; PULSE 89; TEMP 36.4; O2SAT 97
--- NOTE | 2017-03-25 16:30 | Radiation Oncology Follow-Up ---
Radiation Oncology Follow-Up Date of Visit March 25, 2017. (Lillie Ferguson PA-C) Reason For Visit 6 week follow-up (Lillie Ferguson PA-C) Radiation Completion Date 02/12/17 (Lillie Ferguson PA-C) Diagnosis (1) Tongue cancer Status: Acute Onset Date: 09/17/2016 Histology Subtype: squamous cell carcinoma Stage: IV Permanent Comment: STAGING: Oral tongue, left, SCC, p16 negative, pT1N2b, stage JANETTE Left lateral Tongue lesion found on dental examination Status post biopsy 09/17/2016 revealing squamous cell carcinoma Status post left partial glossectomy and left modified radical neck dissection 11/07/2016 Status post combined radiation and chemotherapy. Radiation stopped at the patient's request on 02/12/2017. He received 5400 cGy Last Edited By: Lillie Ferguson on Feb 20, 2017 09:37 (Lillie Ferguson PA-C) History of Present Illness Mr. Redding is a 51-year-old gentleman who recently noticed a nontender lesion along the lateral aspect of his left tongue. He did have a CT neck on 2015 which revealed: "IMPRESSION: 1. Limited evaluation the tongue secondary to dental artifact. There is minimal asymmetry involving the base of the tongue posteriorly on the right. 2. Vallecular asymmetry, possibly secondary to retained secretions on the right. Correlation with prior direct visualization findings is recommended 3. No definitively pathologic cervical lymph nodes. No necrotic lymph nodes. Bilateral cervical lymph nodes the upper limits of normal in size, slightly more prominent on the left as described above." He did present to his local dentist who felt that there was a concerning lesion along the left lateral tongue in the patient did undergo a biopsy by Dr. 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 The patient subsequently had a PET/CT scan completed on 10/09/2016 which revealed focal uptake in the left lateral tongue as well as FDG avid left level IIA, IIB and III cervical lymph nodes highly suspicious for metastasis. Additionally noted was some slight asymmetry uptake in the right palatine tonsil and there was no evidence of distant metastatic disease. The patient did have another biopsy on 10/31/2016 of the right base of tongue and right tonsil which were negative. The patient was subsequently referred to Dr. John Delong from ENT at [facility]. Dr. Delong recommended a left partial glossectomy and left neck dissection. The patient was taken to the operating room on 11/07/2016 for a left partial glossectomy and left modified radical neck dissection by Dr. Delong. Pathology revealed a 7 mm poorly differentiated squamous cell carcinoma with no evidence of lymphovascular space invasion or perineural invasion involving the left lateral tongue. The primary tumor was resected with negative margins and the closest margin to carcinoma in situ is 4 mm. The patient did also undergo a left modified radical neck dissection which revealed 6/30 positive lymph nodes involving levels II, III and V. The largest lymph node metastasis was 2.6 cm and there is no evidence of extranodal extension. The tumor was staged is a [id number]. The patient was then seen in consultation by Dr. Vu Penn for medical oncology who recommended adjuvant chemotherapy and radiation therapy. Dr. Vu Penn is recommended weekly cis-jena chemotherapy. We are now seeing the patient in consultation to discuss the role of adjuvant radiation therapy. Status post completion of combined radiation and chemotherapy. Radiation was completed 02/12/2017 received 5400 cGy. Stopped early at patient's request. (Lillie Ferguson PA-C) Interim History He has steadily improved over the past month decreased pain and discomfort of the mouth and throat. He does have xerostomia. He especially has discomfort at the area of the PEG tube site. He has been taking all nutrition by mouth for the past 2 weeks. He has called Dr. Noriega's office to request that the tube be removed. He did have an area of redness below the anchor. He was seen at wound clinic and had due to her arm placed. This does help the external irritation. He has to be careful with the anchoring tape so that there is no tension on the tube. With increased tension he will have increased discomfort. He did see Dr. Delong. He was told that there is an area of concern. This may be post treatment changes. Dr. Delong is seeing him back on 04/08/2017. (Lillie Ferguson PA-C) Allergies Coded Allergies: Morphine and Related (Verified Allergy, Severe, RASH, 02/09/17) Home Medications Scheduled Fish Oil ([place]-3), 1 CAP PO DAILY Pilocarpine (Salagen), 5 MG PO TID Simvastatin (Zocor), 20 MG PO DAILY Scheduled PRN Hydromorphone Hcl (Dilaudid), 1 TAB PO QID PRN for Pain Omeprazole (Prilosec), 20 MG PO DAILY PRN for Indigestion Review of Systems Gastrointestinal: Symptoms: WNL Oral: Symptoms: Scant Saliva/Dry Mouth Other Oral Symptoms: Using salagen for dry mouth - minimal sore throat Respiratory: Symptoms: WNL Other Respiratory: Patient currently has cold and has cough Urinary: Symptoms: WNL Skin: Symptoms: No Problems (Lillie Ferguson PA-C) Physical Exam Vital Signs Date Time Temp Pulse Resp B/P Pulse Ox O2 Delivery O2 Flow Rate FiO2 03/25/17 14:46 36.4 89 16 132/83 97 Fatigue: None General Appearance: no apparent distress Eyes: normal inspection, EOMI ENT: hearing grossly normal, + pertinent finding (mouth reveals postoperative changes. There is a mild palpable ridge of the left posterior tongue. There is no erythema. Mucositis has resolved. There are no signs of thrush.) Neck: no adenopathy, thyroid normal, + pertinent finding (there is no tenderness of the left lateral neck. There is mild hyperpigmentation. There is no dry desquamation.) Respiratory/Chest: lungs clear, no respiratory distress, no accessory muscle use Cardiovascular: regular rate, rhythm, no gallop, no murmur Abdomen: non tender Extremities: no pedal edema Neurologic/Psychiatric: no motor/sensory deficits, alert, normal mood/affect Skin: warm/dry (Lillie Ferguson PA-C) Laboratory Studies Test 02/09/17 13:24 02/09/17 14:58 02/09/17 17:20 02/10/17 05:37 Prothrombin Time 9.9 SECONDS (9.0-12.0) Prothrombin Time INR 0.9 (0.9-1.1) Phosphorus Level 3.4 mg/dl (2.5-4.9) Magnesium Level 2.3 mg/dl (1.8-2.4) Total Bilirubin 0.5 mg/dl (0.2-1) Direct Bilirubin 0.1 mg/dl (0-0.2) Aspartate Amino Transferase (AST) 18 U/L (15-37) Alanine Aminotransferase (ALT) 31 U/L (12-78) Alkaline Phosphatase 72 U/L (45-117) Total Creatine Kinase 34 U/L (39-308) Creatine Kinase MB < 0.5 ng/ml (0.5-3.6) Creatine Kinase MB Ratio (0-3.0) Troponin I < 0.015 ng/ml (0-0.045) Total Protein 7.5 gm/dl (6.4-8.2) Albumin 3.7 gm/dl (3.4-5.0) Lipase 153 U/L (73-393) POC Lactic Acid Venous 0.79 mmol/L (0.90-1.70) Urine Color YELLOW Urine Appearance CLEAR (CLEAR) Urine pH 7.5 (4.5-7.5) Urine Specific [place] 1.015 (1.000-1.030) Urine Protein NEG (NEG) Urine Glucose (UA) NEG (NEG) Urine Ketones NEG (NEG) Urine Occult Blood NEG (NEG) Urine Nitrite NEG (NEG) Urine Bilirubin NEG (NEG) Urine Urobilinogen NEG (NEG) Urine Leukocyte Esterase NEG (NEG) White Blood Count 1.97 K/uL (4.8-10.8) Red Blood Count 3.81 M/uL (4.7-6.1) Hemoglobin 10.6 g/dL (14.0-18.0) Hematocrit 32.5 % (42-52) Mean Corpuscular Volume 85.3 fL (80-100) Mean Corpuscular Hemoglobin 27.8 pg (25-34) Mean Corpuscular Hemoglobin Concent 32.6 g/dl (32-36) Platelet Count 177 K/uL (130-400) Mean Platelet Volume 8.8 fL (7.4-10.4) Neutrophils (%) (Auto) 53.3 % Lymphocytes (%) (Auto) 25.4 % Monocytes (%) (Auto) 19.8 % Eosinophils (%) (Auto) 1.5 % Basophils (%) (Auto) 0.0 % Neutrophils # (Auto) 1.05 K/uL (1.4-6.5) Lymphocytes # (Auto) 0.50 K/uL (1.2-3.4) Monocytes # (Auto) 0.39 K/uL (0.11-0.59) Eosinophils # (Auto) 0.03 K/uL (0-0.5) Basophils # (Auto) 0.00 K/uL (0-0.2) RDW Standard Deviation 48.6 fL (36.4-46.3) RDW Coefficient of Variation 15.8 % (11.5-14.5) Immature Granulocyte % (Auto) 0.0 % Immature Granulocyte # (Auto) 0.00 K/uL (0.00-0.02) Sodium Level 142 mmol/L (136-145) Potassium Level 4.0 mmol/L (3.5-5.1) Chloride Level 108 mmol/L (98-107) Carbon Dioxide Level 25 mmol/L (21-32) Anion Gap 9.0 mmol/L (3-11) Blood Urea Nitrogen 12 mg/dl (7-18) Creatinine 0.83 mg/dl (0.60-1.40) Est Creatinine Clear Calc Drug Dose 117.3 ml/min Estimated GFR () 116.4 Estimated GFR (Non- 100.5 BUN/Creatinine Ratio 14.0 (10-20) Random Glucose 89 mg/dl (70-99) Calcium Level 8.5 mg/dl (8.5-10.1) Test 02/11/17 05:15 White Blood Count 2.18 K/uL (4.8-10.8) Red Blood Count 3.65 M/uL (4.7-6.1) Hemoglobin 10.3 g/dL (14.0-18.0) Hematocrit 31.1 % (42-52) Mean Corpuscular Volume 85.2 fL (80-100) Mean Corpuscular Hemoglobin 28.2 pg (25-34) Mean Corpuscular Hemoglobin Concent 33.1 g/dl (32-36) Platelet Count 170 K/uL (130-400) Mean Platelet Volume 8.6 fL (7.4-10.4) Neutrophils (%) (Auto) 52.7 % Lymphocytes (%) (Auto) 19.3 % Monocytes (%) (Auto) 26.1 % Eosinophils (%) (Auto) 1.4 % Basophils (%) (Auto) 0.5 % Neutrophils # (Auto) 1.15 K/uL (1.4-6.5) Lymphocytes # (Auto) 0.42 K/uL (1.2-3.4) Monocytes # (Auto) 0.57 K/uL (0.11-0.59) Eosinophils # (Auto) 0.03 K/uL (0-0.5) Basophils # (Auto) 0.01 K/uL (0-0.2) RDW Standard Deviation 48.6 fL (36.4-46.3) RDW Coefficient of Variation 15.7 % (11.5-14.5) Immature Granulocyte % (Auto) 0.0 % Immature Granulocyte # (Auto) 0.00 K/uL (0.00-0.02) Sodium Level 143 mmol/L (136-145) Potassium Level 4.0 mmol/L (3.5-5.1) Chloride Level 108 mmol/L (98-107) Carbon Dioxide Level 29 mmol/L (21-32) Anion Gap 6.0 mmol/L (3-11) Blood Urea Nitrogen 11 mg/dl (7-18) Creatinine 0.80 mg/dl (0.60-1.40) Est Creatinine Clear Calc Drug Dose 122.5 ml/min Estimated GFR () 118.2 Estimated GFR (Non- 102.0 BUN/Creatinine Ratio 13.8 (10-20) Random Glucose 90 mg/dl (70-99) Calcium Level 8.5 mg/dl (8.5-10.1) (Lillie Ferguson PA-C) Assessment & Plan Plan: The patient was also seen and examined by Dr. Penn. He'll continue follow-up with Dr. Delong and will be seeing him on 04/08/2017. He is seeing Dr. Penn at medical oncology on 04/06/2017. We asked him to return to our office in 4 months. He may call if he has any questions or concerns in the interim. (Lillie Ferguson PA-C) I agree with note created by Lillie Ferguson PA-C. I reviewed the patient's chart and information with her. I have examined and evaluated the patient. I reviewed relevant clinical information and answered the patient's and/or family' s questions. (Veeral. Penn MD) Total Time In Follow-Up I spent 20 minutes speaking to the patient and performing examination. I spent 15 minutes reviewing information in completing this note. (Lillie Ferguson PA-C) I spent 15 minutes examining and counseling the patient. (Veeral. Penn MD) Copy To Harshal Conrad D.O.Int.Med.; John Delong M.D.; Vu Penn M.D.
== END | disposition home or self-care (01) ==
LOC: C.ONC 14:43
PROVIDERS: ATTEND Radiology Radiation Oncology
DX: Z08 Encounter for follow-up examination after completed treatment for malignant neoplasm (principal); Z92.3 Personal history of irradiation; Z85.810 Personal history of malignant neoplasm of tongue

== ENCOUNTER → 2017-04-04 | Outpatient (CLI) | payer BC ==
[~2017-04-04] MED LIST changes: -LORA-741 PO; -ONDA8TAB6 PO; -PROC1TAB5 PO
[2017-04-04 11:32] LABS: CHOLESTEROL/HDL RATIO 5.8
== END | disposition home or self-care (01) ==
LOC: C.LABBC 07:59
PROVIDERS: ATTEND Family Medicine
DX: E78.00 Pure hypercholesterolemia, unspecified (principal)

== ENCOUNTER → 2017-07-21 | Outpatient (CLI) | payer BC | END | disposition home or self-care (01) | LOC: C.RDSM 14:45 | PROVIDERS: ATTEND Physical Medicine & Rehabilitation Sports Medicine | DX: M25.512 Pain in left shoulder (principal) ==

== ENCOUNTER → 2017-08-05 | Outpatient (CLI) | payer BC ==
[2017-08-05 14:53] VITALS: BP_SYST 118; PULSE 52; TEMP 36.6; O2SAT 97
--- NOTE | 2017-08-05 16:32 | Radiation Oncology Follow-Up ---
Radiation Oncology Follow-Up Date of Visit Aug 05, 2017. Reason For Visit Six-month follow-up Radiation Completion Date 02/12/17 Diagnosis (1) Tongue cancer Status: Acute Onset Date: 09/17/2016 Location: left lateral Histology Subtype: squamous cell carcinoma Stage: IV Permanent Comment: STAGING: Oral tongue, left, SCC, p16 negative, pT1N2b, stage JAENTTE Left lateral Tongue lesion found on dental examination Status post biopsy 09/17/2016 revealing squamous cell carcinoma Status post left partial glossectomy and left modified radical neck dissection 11/07/2016 Status post combined radiation and chemotherapy. Radiation stopped at the patient's request on 02/12/2017. He received 5400 cGy Last Edited By: Lillie Ferguson on Feb 20, 2017 09:37 History of Present Illness Mr. Redding is a 51-year-old gentleman who recently noticed a nontender lesion along the lateral aspect of his left tongue. He did have a CT neck on 2015 which revealed: "IMPRESSION: 1. Limited evaluation the tongue secondary to dental artifact. There is minimal asymmetry involving the base of the tongue posteriorly on the right. 2. Vallecular asymmetry, possibly secondary to retained secretions on the right. Correlation with prior direct visualization findings is recommended 3. No definitively pathologic cervical lymph nodes. No necrotic lymph nodes. Bilateral cervical lymph nodes the upper limits of normal in size, slightly more prominent on the left as described above." He did present to his local dentist who felt that there was a concerning lesion along the left lateral tongue in the patient did undergo a biopsy by Dr. 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 The patient subsequently had a PET/CT scan completed on 10/09/2016 which revealed focal uptake in the left lateral tongue as well as FDG avid left level IIA, IIB and III cervical lymph nodes highly suspicious for metastasis. Additionally noted was some slight asymmetry uptake in the right palatine tonsil and there was no evidence of distant metastatic disease. The patient did have another biopsy on 10/31/2016 of the right base of tongue and right tonsil which were negative. The patient was subsequently referred to Dr. John Delong from ENT at [facility]. Dr. Delong recommended a left partial glossectomy and left neck dissection. The patient was taken to the operating room on 11/07/2016 for a left partial glossectomy and left modified radical neck dissection by Dr. Delong. Pathology revealed a 7 mm poorly differentiated squamous cell carcinoma with no evidence of lymphovascular space invasion or perineural invasion involving the left lateral tongue. The primary tumor was resected with negative margins and the closest margin to carcinoma in situ is 4 mm. The patient did also undergo a left modified radical neck dissection which revealed /30 positive lymph nodes involving levels II, III and V. The largest lymph node metastasis was 2.6 cm and there is no evidence of extranodal extension. The tumor was staged is a [id number]. The patient was then seen in consultation by Dr. Vu Penn for medical oncology who recommended adjuvant chemotherapy and radiation therapy. Dr. Vu Penn is recommended weekly cis-karuk chemotherapy. We are now seeing the patient in consultation to discuss the role of adjuvant radiation therapy. Status post completion of combined radiation and chemotherapy. Radiation was completed 02/12/2017 received 5400 cGy. Stopped early at patient's request. Interim History He's been doing well over the past 6 months. He had been hospitalized and had a feeding tube placed. He was able to have steadily take in all nourishment by mouth. Feeding tube was then removed. He has had approximate 7 pound weight giving. He feels that the xerostomia steadily improving. He now uses Biotene rarely. He has a small ridge of tissue on the floor of the mouth left-hand side. This area seems to accumulate food when eating. He asked to rinse his mouth in order to remove food particles from the area. He stated there is a small area of scar tissue that Dr. Delong is following also in the left floor the mouth. He denies pain in the mouth. He does have feeling of paresthesias and discomfort of the left side of the face and lateral neck. He is doing very diligent dental care. He has been using a prescription to the pain as an uses fluoride trays on a regular basis. He is followed by medical oncology and there is a PET scan ordered for September 17. Allergies Coded Allergies: Morphine and Related (Verified Allergy, Severe, RASH, 02/09/17) Home Medications Scheduled Fish Oil ([place]-3), 1 CAP PO DAILY Multivitamin (Multivitamin), 1 TAB PO DAILY Simvastatin (Zocor), 20 MG PO DAILY Review of Systems Gastrointestinal: Symptoms: WNL Oral: Symptoms: No Problems Other Oral Symptoms: Taste and dryness of mouth much improved; Respiratory: Symptoms: WNL Urinary: Symptoms: WNL Skin: Symptoms: No Problems Physical Exam Vital Signs Date Time Temp Pulse Resp B/P (MAP) Pulse Ox O2 Delivery O2 Flow Rate FiO2 08/05/17 14:53 36.6 52 12 118/ 97 Fatigue: None General Appearance: no apparent distress Eyes: normal inspection, EOMI ENT: hearing grossly normal, TMs normal, + pertinent finding (postoperative changes left lateral tongue. There are no visible or palpable lesions on the tongue. He has an area of fibrous tissue and the left floor the mouth posteriorly. There is a indented area along the left floor the mouth. There is no tenderness to palpation.) Neck: no adenopathy, thyroid normal, + pertinent finding (postoperative changes of left neck. Alopecia of the left neck. There is no palpable adenopathy.) Respiratory/Chest: lungs clear, no respiratory distress, no accessory muscle use Cardiovascular: regular rate, rhythm, no gallop, no murmur Extremities: no pedal edema Neurologic/Psychiatric: no motor/sensory deficits, alert, normal mood/affect Skin: warm/dry Assessment & Plan Plan: He was seen and examined by Dr. Penn. Continue to follow with his primary care physician, medical oncology, and ENT. He is scheduled for a PET scan on 09/17/2017. He'll continue the regular use of Biotene and the prescription toothpaste and fluoride treatments. We asked him to return to our office in 6 months. He may call if he has any questions or concerns in the interim. Assessment & Plan (Attending) ADDENDUM: I agree with note created by Lillie Ferguson PA-C. I reviewed the patient's chart and information with her. I have examined and evaluated the patient. I reviewed relevant clinical information and answered the patient's and /or family's questions. RN HEMODIALYSIS CHARGE Total Time In Follow-Up I spent 20 minutes speaking to the patient and performing examination. I spent 15 minutes reviewing information in completing this note. [place] Total Time (Attending) In Follow-Up I spent 15 minutes examining and counseling the patient. RN HEMODIALYSIS CHARGE Copy To Harshal Conrad D.O.Int.Med.; John Delong M.D.; Vu Penn M.D.
== END | disposition home or self-care (01) ==
LOC: C.ONC 14:46
PROVIDERS: ATTEND Physician Assistant Medical
DX: Z08 Encounter for follow-up examination after completed treatment for malignant neoplasm (principal); Z92.3 Personal history of irradiation; Z85.810 Personal history of malignant neoplasm of tongue

== ENCOUNTER → 2018-02-04 | Outpatient (CLI) | payer BC ==
[~2018-02-04] MED LIST changes: -HYDR4TAB78 PO; -OMEP20CA9 PO; -PILO5TAB10 PO; +PRLSR20 PO
[2018-02-04 15:02] VITALS: BP 114/74; PULSE 76; TEMP 36.6; O2SAT 95
--- NOTE | 2018-02-04 15:58 | Radiation Oncology Follow-Up ---
Radiation Oncology Follow-Up Date of Visit Feb 04, 2018. Reason For Visit Six-month follow-up Radiation Completion Date 02/12/17 Diagnosis (1) Tongue cancer Status: Resolved Onset Date: 09/17/2016 Location: Lateral left Histology Subtype: Squamous cell Stage: IV Permanent Comment: STAGING: Oral tongue, left, SCC, p16 negative, pT1N2b, stage JANETTE Left lateral Tongue lesion found on dental examination Status post biopsy 09/17/2016 revealing squamous cell carcinoma Status post left partial glossectomy and left modified radical neck dissection 11/07/2016 Status post combined radiation and chemotherapy. Radiation stopped at the patient's request on 02/12/2017. He received 5400 cGy Last Edited By: Lillie Ferguson on Feb 20, 2017 09:37 History of Present Illness Mr. Redding is a 51-year-old gentleman who recently noticed a nontender lesion along the lateral aspect of his left tongue. He did have a CT neck on 2015 which revealed: "IMPRESSION: 1. Limited evaluation the tongue secondary to dental artifact. There is minimal asymmetry involving the base of the tongue posteriorly on the right. 2. Vallecular asymmetry, possibly secondary to retained secretions on the right. Correlation with prior direct visualization findings is recommended 3. No definitively pathologic cervical lymph nodes. No necrotic lymph nodes. Bilateral cervical lymph nodes the upper limits of normal in size, slightly more prominent on the left as described above." He did present to his local dentist who felt that there was a concerning lesion along the left lateral tongue in the patient did undergo a biopsy by Dr. 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 The patient subsequently had a PET/CT scan completed on 10/09/2016 which revealed focal uptake in the left lateral tongue as well as FDG avid left level IIA, IIB and III cervical lymph nodes highly suspicious for metastasis. Additionally noted was some slight asymmetry uptake in the right palatine tonsil and there was no evidence of distant metastatic disease. The patient did have another biopsy on 10/31/2016 of the right base of tongue and right tonsil which were negative. The patient was subsequently referred to Dr. John Delong from ENT at [facility]. Dr. Delong recommended a left partial glossectomy and left neck dissection. The patient was taken to the operating room on 11/07/2016 for a left partial glossectomy and left modified radical neck dissection by Dr. Delong. Pathology revealed a 7 mm poorly differentiated squamous cell carcinoma with no evidence of lymphovascular space invasion or perineural invasion involving the left lateral tongue. The primary tumor was resected with negative margins and the closest margin to carcinoma in situ is 4 mm. The patient did also undergo a left modified radical neck dissection which revealed /30 positive lymph nodes involving levels II, III and V. The largest lymph node metastasis was 2.6 cm and there is no evidence of extranodal extension. The tumor was staged is a [id number]. The patient was then seen in consultation by Dr. Vu Penn for medical oncology who recommended adjuvant chemotherapy and radiation therapy. Dr. Vu Penn is recommended weekly cis-chenega chemotherapy. We are now seeing the patient in consultation to discuss the role of adjuvant radiation therapy. Status post completion of combined radiation and chemotherapy. Radiation was completed 02/12/2017 received 5400 cGy. Stopped early at patient's request. Interim History He has been doing well over the past 6 months. He continues to have improvement in the xerostomia. He feels that he does no longer have to carry water with him everywhere he goes. His taste has improved and he feels he is tasting most any foods. His appetite is good and he has had a significant weight gain over the past 6 months. He is seeing the dentist regularly and has regular checkups and there is been no issues. He does have irritation if trying to eat spicy foods. He also cannot use adult toothpaste. He has no problems with using children's toothpastes. He has had a recheck PET scan that was performed on September 25, 2017. This showed post surgical/posttreatment changes noted in the left side of the neck. No evidence of recurrent disease or distant metastatic disease. He does have issues with stiffness of the left neck. He was also having problems with shoulder discomfort. He has been receiving physical therapy and this is steadily improving. Allergies Coded Allergies: Morphine and Related (Verified Allergy, Severe, RASH, 02/09/17) Home Medications Scheduled Fish Oil (Saluda-3), 1 CAP PO DAILY Multivitamin (Multivitamin), 1 TAB PO DAILY Omeprazole (Prilosec), 20 MG PO DAILYPrn Simvastatin (Zocor), 20 MG PO DAILY Review of Systems Gastrointestinal: Symptoms: WNL Oral: Other Oral Symptoms: dry mouth ,soreness tongue intermet Respiratory: Symptoms: WNL Urinary: Symptoms: WNL Skin: Symptoms: No Problems Physical Exam Vital Signs Date Time Temp Pulse Resp B/P (MAP) Pulse Ox O2 Delivery O2 Flow Rate FiO2 02/04/18 15:02 36.6 76 16 114/74 95 General Appearance: no apparent distress Eyes: normal inspection, PERRL ENT: normal ENT inspection, hearing grossly normal, + pertinent finding ( Postoperative changes are noted of the tongue. There are no masses that are visible or palpable of the tongue buccal mucosa or floor of the mouth. He has better movement of the tongue. He has no trismus.) Neck: no adenopathy, + pertinent finding (Postoperative changes. No palpable masses.) Respiratory/Chest: lungs clear, no respiratory distress, no accessory muscle use Cardiovascular: regular rate, rhythm, no gallop, no murmur Skin: warm/dry Pain Management Patient Reports Pain: Yes Side: Left Pain Location: shoulder and left arm Patient Preferred Pain Scale: 0 - 10 Initial Pain Intensity: 2.0 Pain Management Plan He is undergoing physical therapy for the discomfort he is having in the shoulder. This is improving. He does not require any pain management through our office. Laboratory Laboratory Results: not applicable Pathology Pathology Results: and pertinent findings noted in HPI Imaging Imaging Studies: were reviewed Imaging Comments Reviewed in the interim history. Assessment & Plan Plan: He was seen and examined by Dr. Penn today. Continue regular follow-up with Dr. Delong. He is now seeing him every 3 months. He will continue follow -up with Dr. Penn in medical oncology as well as his primary care provider. He will continue and complete the physical therapy for his shoulder. He does regular stretching exercises for his neck. It is planned that he will be having recheck CAT scans that will be ordered through medical oncology. We asked him to return to our office in 6 months. He may call if he has any questions or concerns in the interim. Assessment & Plan (Attending) I agree with note created by Lillie Ferguson PA-C. I reviewed the patient's chart and information with her. I have examined and evaluated the patient. I reviewed relevant clinical information and answered the patient's and/or family' s questions. [employer] WORKER Total Time In Follow-Up I spent 20 minutes speaking to the patient in performing examination. I spent 15 minutes reviewing information and completing this note. Total Time (Attending) In Follow-Up I spent 15 minutes examining and counseling the patient. WALLBOARD WORKER Copy To Martha Ballard PA-C; John Delong M.D.; Vu Penn M.D.
== END | disposition home or self-care (01) ==
LOC: C.ONC 14:50
PROVIDERS: ATTEND Physician Assistant Medical
DX: Z08 Encounter for follow-up examination after completed treatment for malignant neoplasm (principal); Z92.3 Personal history of irradiation; Z85.810 Personal history of malignant neoplasm of tongue